=== PATIENT | male | born 1975 | race African-American/Black ===

== ENCOUNTER 2021-05-31 13:01 | Emergency (ER) | payer OTHER ==
[~2021-05-31] VITALS: Ht 177.8 cm; Wt 113.4 kg
[2021-05-31 13:48] LABS: ABSOLUTE NEUTROPHILS 3.8 thou/uL (1.4-8.2); BASOPHILS 0.8 % (0.0-2.0); EOSINOPHILS 3.9 % (0.0-3.0); HEMATOCRIT 44.1 % (42.0-52.0); HEMOGLOBIN 14.6 gm/dL (14.0-18.0); LYMPHOCYTES 28.2 % (24.0-44.0); MCH 29.7 pg (26.0-34.0); MCHC 33.2 g/dL (28.0-37.0); MCV 89.5 fL (80.0-100.0); MONOCYTES 8.4 % (1.0-8.0); PLATELET COUNT 264 thou/uL (150-400); POLYS 58.7 % (36.0-66.0); RBC 4.93 mil/uL (4.50-6.00); RDW 13.9 % (10.5-14.5); WBC 6.5 thou/uL (4.0-11.0)
[2021-05-31] MEDS ORDERED: ZESTRIL40 MG PO (13:49)
[2021-05-31] MEDS ORDERED: TOPROL XL50 MG PO (13:51)
[2021-05-31] MEDS ORDERED: FLOMAX0.4 MG PO (13:53)
[2021-05-31 14:54] LABS: CREATININE 1.3 mg/dL (0.7-1.3); POTASSIUM 4.7 mmol/L (3.5-5.1)
[2021-05-31 15:00] LABS: ALBUMIN 3.9 g/dL (3.4-5.0); DIRECT BILIRUBIN 0.1 mg/dL (<0.1-0.2); TOTAL BILIRUBIN 0.6 mg/dL (0.2-1.0); TOTAL PROTEIN 8.1 g/dL (6.4-8.2)
[2021-05-31] MEDS ORDERED: PEPCID20 MG PO (16:09)
[2021-05-31 16:20] VITALS: BP 117/75
== END 2021-05-31 16:21 | disposition home or self-care (01) ==
LOC: ER 13:01
PROVIDERS: Student in an Organized Health Care Education/Training Program
DX: R10.84 Generalized abdominal pain (principal); R14.0 Abdominal distension (gaseous); R19.5 Other fecal abnormalities; I10 Essential (primary) hypertension; Z20.822 Contact with and (suspected) exposure to COVID-19; Z79.899 Other long term (current) drug therapy